=== PATIENT | male | born 1960 | race Hispanic/Latino ===

== ENCOUNTER 2018-04-24 02:00 | Emergency (ER) | payer OTHER ==
[2018-04-24] MEDS ORDERED: AUGMENTIN 875 MG PO STA (04:08)
[2018-04-24] MEDS ORDERED: XYLOCAINE 2% INFILTRATI STA (04:08)
[2018-04-24] MEDS ORDERED: NORCO 5/325 PO STA (04:08)
--- NOTE | 2018-04-24 05:03 | Emergency Department Report ---
Abscess Boil HPI - HPI Chief Complaint: Extremity Injury, Upper Stated Complaint: RING FINGER SWOLLEN LEFT HAND Time Seen by Provider: 04/24/18 04:07 Duration: 3 Days Location: Upper Extremity (left 3rd digit palmar aspect abscess noted) Severity: Mild History: Yes Pain, Yes Previous History, No Fever, No Purulent Drainage, No Numbness, No Foreign Body, No Insect Bite Home Medications: Previous Rx's Medication Instructions Recorded Last Taken Type Chlorhexidine Gluconate [Hibiclens] 10 ml TP BID #240 liquid 04/24/18 Unknown Rx Sulfamethoxazole/Trimethoprim 2 each PO BID #40 tablet 04/24/18 Unknown Rx [Bactrim DS TAB] Allergies/Adverse Reactions: Allergies Allergy/AdvReac Type Severity Reaction Status Date / Time No Known Allergies Allergy Verified 04/24/18 04:23 ED Review of Systems ROS: Stated complaint: RING FINGER SWOLLEN LEFT HAND Other details as noted in HPI Constitutional: denies: chills, fever Eyes: denies: eye pain, eye discharge, vision change ENT: denies: ear pain, throat pain Respiratory: denies: cough, shortness of breath, wheezing Cardiovascular: denies: chest pain, palpitations Endocrine: no symptoms reported Gastrointestinal: denies: abdominal pain, nausea, diarrhea Genitourinary: denies: urgency, dysuria Musculoskeletal: denies: back pain, joint swelling, arthralgia Skin: denies: rash, lesions Neurological: denies: headache, weakness, paresthesias Psychiatric: denies: anxiety, depression Hematological/Lymphatic: denies: easy bleeding, easy bruising ED Past Medical Hx - Past Medical History Previous Medical History?: Yes Additional medical history: Chronic Back Pain, Paget's Disease - Surgical History Past Surgical History?: Yes Additional Surgical History: Back, Lymph node removal Left Arm - Social History Smoking Status: Current Every Day Smoker Substance Use Type: None - Medications Home Medications: Home Medications Medication Instructions Recorded Confirmed Last Taken Type Chlorhexidine Gluconate [Hibiclens] 10 ml TP BID #240 liquid 04/24/18 Unknown Rx Sulfamethoxazole/Trimethoprim 2 each PO BID #40 tablet 04/24/18 Unknown Rx [Bactrim DS TAB] ED Abscess Boil Physical Exam - Exam General: Vital signs noted. No distress. Alert and acting appropriately. Front/Back of Body, Lg (Color): 1 - abscess finger Size: 2 cm Exam: Yes Tenderness, Yes Fluctuance, Yes Normal Neurologic Exam, Yes Normal Circulation, No Surrounding Cellulites/Erythema, No Lymphangitis, No Crepitation, No Heart Murmur I & D Note - I & D Note I & D Note: Left fourth index finger prepped and draped in standard sterile fashion anesthesia using 2% lidocaine with no epinephrine. #11 scalpel blade was used to make a T incision over the abscess site was copious pus was evacuated. Wound was irrigated and then dressed with a and time microbial nonstick dressing. No complications and estimated blood loss less than 2 mL ED Course Vital Signs 04/24/18 04/24/18 02:16 02:30 Temperature 98.0 F 98 F Pulse Rate 69 69 Respiratory 18 18 Rate Blood Pressure 115/66 Blood Pressure 115/66 [Left] O2 Sat by Pulse 95 95 Oximetry Critical care attestation.: If time is entered above; I have spent that time in minutes in the direct care of this critically ill patient, excluding procedure time. ED Disposition Clinical Impression: Abscess of finger of left hand Disposition: - TO HOME OR SELFCARE Is pt being admited?: No Does the pt Need Aspirin: No Condition: Stable Instructions: Abscess (ED) Referrals: TOREY OSUNA MD [Primary Care Provider] - 3-5 Days
[2018-04-24 06:05] VITALS: BP 123/87
== END 2018-04-24 06:05 | disposition home or self-care (01) ==
LOC: ED 02:00
DX: L02.512 Cutaneous abscess of left hand (principal); G89.29 Other chronic pain; F17.200 Nicotine dependence, unspecified, uncomplicated

== ENCOUNTER 2019-11-15 00:51 | Emergency (ER) | payer SELFPAY ==
[2019-11-15 01:20] VITALS: BP 166/99
[2019-11-15] MEDS ORDERED: IBUPROFEN 600 MG TAB PO ONE (04:09)
[2019-11-15] MEDS ORDERED: dexAMETHasone 20 MG/5 ML VIAL IM ONE (04:09)
[2019-11-15] MEDS ORDERED: ONDANSETRON 4 MG ODT TAB PO ONE (04:09)
[2019-11-15] MEDS ORDERED: HYDROcodone/ACETAMINOPHEN 5-325 MG TAB PO ONE (04:09)
--- NOTE | 2019-11-15 04:57 | XRay Report ---
LEFT SHOULDER 2 VIEWS INDICATION / CLINICAL INFORMATION: left shoulder pain - heavy lifting. COMPARISON: None available. FINDINGS: Surgical clips in the left axilla. No fracture, dislocation or other acute skeletal abnormality. Signer Name: Evelio Rodriguez MD Signed: 11/15/2019 4:53 AM Workstation Name: [id number]
--- NOTE | 2019-11-15 05:48 | Emergency Department Report ---
ED Upper Extremity Inj HPI - General Chief Complaint: Shoulder Injury Stated Complaint: LEFT SHOULDER PAIN Source: patient Mode of arrival: Ambulatory Limitations: No Limitations - History of Present Illness Initial Comments: Patient is a 59-year-old white male with a history of chronic hepatitis C who presents to the ED with complaint of acute onset persistent severe left shoulder pain after heavy lifting 3 days ago at home. Patient states that the pain has been persistent and severe and especially in the last 12 hours he has been unable to perform any active range of motion of the left shoulder because of severe pain. Patient states that he has been taking [id number] medications with no relief. Patient denies fall, traumatic injury, dizziness, syncope, chest pain, shortness of breath, neck pain, back pain, numbness and tingling or weakness of left arm or jaw pain and back pain. MD Complaint: Injury to:: left, shoulder -: Sudden, days(s) (3) Other Extremity Injury: Shoulder: Left (pain) Other Injuries: none Handedness: left Place: home Severity scale (0 -10): 7 Improves With: none Worsens With: movement of extremity Context: injury, other (heavy lifting) Associated Symptoms: denies other symptoms. denies: weakness, numbness, neck pain, suspects foreign body, nausea/vomiting - Related Data Previous Rx's Medication Instructions Recorded Last Taken Type Chlorhexidine Gluconate [Hibiclens] 10 ml TP BID #240 liquid 04/24/18 Unknown Rx Sulfamethoxazole/Trimethoprim 2 each PO BID #40 tablet 04/24/18 Unknown Rx [Bactrim DS TAB] Clindamycin [Clindamycin CAP] 300 mg PO Q8H #21 cap 06/23/18 Unknown Rx HYDROcodone/APAP 5-325 [[place] 1 each PO Q6HR PRN #14 tablet 06/23/18 Unknown Rx 5/325] Sulfamethoxazole/Trimethoprim 1 each PO BID #14 tablet 06/23/18 Unknown Rx [Bactrim DS TAB] Ibuprofen [Motrin 600 MG tab] 600 mg PO Q8H PRN #20 tablet 10/30/19 Unknown Rx Naproxen 500 mg PO Q12H PRN #30 tablet 11/15/19 Unknown Rx predniSONE [Deltasone] 40 mg PO QDAY #10 tab 11/15/19 Unknown Rx tiZANidine [Zanaflex 4mg TAB] 4 mg PO Q12H PRN #12 tablet 11/15/19 Unknown Rx traMADoL [Ultram] 50 mg PO Q6HR PRN #10 tablet 11/15/19 Unknown Rx Allergies Allergy/AdvReac Type Severity Reaction Status Date / Time No Known Allergies Allergy Verified 04/24/18 04:23 ED Review of Systems ROS: Stated complaint: LEFT SHOULDER PAIN Other details as noted in HPI Constitutional: denies: chills, fever Eyes: denies: eye pain, eye discharge, vision change ENT: denies: ear pain, throat pain Respiratory: denies: cough, shortness of breath, wheezing Cardiovascular: denies: chest pain, palpitations Endocrine: no symptoms reported Gastrointestinal: denies: abdominal pain, nausea, diarrhea Genitourinary: denies: urgency, dysuria Musculoskeletal: arthralgia (Left shoulder pain), myalgia. denies: back pain, joint swelling Skin: denies: rash, lesions Neurological: denies: headache, weakness, paresthesias Psychiatric: denies: anxiety, depression Hematological/Lymphatic: denies: easy bleeding, easy bruising ED Past Medical Hx - Past Medical History Hx Liver Disease: Yes (Hep C) Additional medical history: Paget's Disease - Surgical History Additional Surgical History: Back, Lymph node removal Left Arm - Social History Smoking Status: Current Every Day Smoker Substance Use Type: Alcohol - Medications Home Medications: Home Medications Medication Instructions Recorded Confirmed Last Taken Type Chlorhexidine Gluconate [Hibiclens] 10 ml TP BID #240 liquid 04/24/18 Unknown Rx Sulfamethoxazole/Trimethoprim 2 each PO BID #40 tablet 04/24/18 Unknown Rx [Bactrim DS TAB] Clindamycin [Clindamycin CAP] 300 mg PO Q8H #21 cap 06/23/18 Unknown Rx HYDROcodone/APAP 5-325 [[place] 1 each PO Q6HR PRN #14 tablet 06/23/18 Unknown Rx 5/325] Sulfamethoxazole/Trimethoprim 1 each PO BID #14 tablet 06/23/18 Unknown Rx [Bactrim DS TAB] Ibuprofen [Motrin 600 MG tab] 600 mg PO Q8H PRN #20 tablet 10/30/19 Unknown Rx Naproxen 500 mg PO Q12H PRN #30 tablet 11/15/19 Unknown Rx predniSONE [Deltasone] 40 mg PO QDAY #10 tab 11/15/19 Unknown Rx tiZANidine [Zanaflex 4mg TAB] 4 mg PO Q12H PRN #12 tablet 11/15/19 Unknown Rx traMADoL [Ultram] 50 mg PO Q6HR PRN #10 tablet 11/15/19 Unknown Rx ED Physical Exam - General Limitations: No Limitations General appearance: alert, in no apparent distress - Head Head exam: Present: atraumatic, normocephalic, normal inspection - Eye Eye exam: Present: normal appearance, PERRL, EOMI Pupils: Present: normal accommodation - ENT ENT exam: Present: normal exam, normal orophraynx, mucous membranes moist, TM's normal bilaterally, normal external ear exam - Neck Neck exam: Present: normal inspection, full ROM. Absent: tenderness - Respiratory Respiratory exam: Present: normal lung sounds bilaterally. Absent: respiratory distress, wheezes, rhonchi, chest wall tenderness, accessory muscle use, decreased breath sounds - Cardiovascular Cardiovascular Exam: Present: regular rate, normal rhythm, normal heart sounds. Absent: systolic murmur, diastolic murmur, rubs, gallop - GI/Abdominal GI/Abdominal exam: Present: soft, normal bowel sounds. Absent: distended, tenderness, rebound, hyperactive bowel sounds - Extremities Exam Extremities exam: Present: normal inspection, full ROM, tenderness (Palpable severe left shoulder tenderness with limited range of motion due to pain), normal capillary refill. Absent: joint swelling - Back Exam Back exam: Present: normal inspection, full ROM. Absent: tenderness, CVA tenderness (R), muscle spasm, paraspinal tenderness, vertebral tenderness - Neurological Exam Neurological exam: Present: alert, oriented X3, CN II-XII intact, normal gait, reflexes normal - Psychiatric Psychiatric exam: Present: normal affect, normal mood - Skin Skin exam: Present: warm, dry, intact, normal color. Absent: rash ED Course Vital Signs 11/15/19 00:56 Temperature 98.3 F Pulse Rate 69 Respiratory 18 Rate Blood Pressure 166/99 O2 Sat by Pulse 96 Oximetry ED Medical Decision Making - Radiology Data Radiology results: report reviewed, image reviewed Findings [facility] [address] [place] [address] XRay Report Signed Patient: PUJA WOODWARD MR#: [id number] : 1960 Acct:[id number] Age/Sex: 59 / M ADM Date: 11/15/19 Loc: ED Attending Dr: Ordering Physician: SARWAT YANG Date of Service: 11/15/19 Procedure(s): XR shoulder 2+V LT Accession Number(s): [id number] cc: SARWAT YANG Fluoro Time In Minutes: LEFT SHOULDER 2 VIEWS INDICATION / CLINICAL INFORMATION: left shoulder pain - heavy lifting. COMPARISON: None available. FINDINGS: Surgical clips in the left axilla. No fracture, dislocation or other acute skeletal abnormality. Signer Name: Evelio Rodriguez MD Signed: 11/15/2019 4:53 AM Workstation Name: [id number] Transcribed By: TM Dictated By: Evelio Rodriguez MD Electronically Authenticated By: Evelio Rodriguez MD Signed Date/Time: 11/15/19452 DD/ 1 TD/TT: - Medical Decision Making This is a 59-year-old white male with a history of chronic hepatitis C who presents to the ED with complaint of acute onset persistent severe left shoulder pain after heavy lifting 3 days ago at home. Patient states that the pain has been persistent and severe and especially in the last 12 hours he has been unable to perform any active range of motion of the left shoulder because of severe pain. Patient states that he has been taking [id number] medications with no relief. In the ED, patient is alert and oriented x3 and is not in distress. Patient was treated for pain in the ED and left shoulder x-ray shows no acute fractures or subluxations. On reevaluation, patient's pain is well controlled medications. Patient was discharged home on pain medications and muscle relaxants and was advised to follow-up with his primary care physician in 5 to 7 days for reevaluation or return to the ED immediately if symptoms get worse. - Differential Diagnosis Shoulder fracture; shoulder sprain; muscle strain; bursitis; tendinitis Critical care attestation.: If time is entered above; I have spent that time in minutes in the direct care of this critically ill patient, excluding procedure time. ED Disposition Clinical Impression: Left shoulder tendonitis Sprain of left shoulder Qualifiers: Encounter type: initial encounter Shoulder sprain type: unspecified sprain Qualified Code(s): S43.402A - Unspecified sprain of left shoulder joint, initial encounter Muscle strain of left shoulder Qualifiers: Encounter type: initial encounter Qualified Code(s): S46.912A - Strain of unspecified muscle, fascia and tendon at shoulder and upper arm level, left arm, initial encounter Disposition: TO HOME OR SELFCARE Is pt being admited?: No Does the pt Need Aspirin: No Condition: Stable Instructions: Muscle Strain (ED), Shoulder Sprain (ED), Tendinitis (ED) Additional Instructions: Left shoulder x-ray shows no acute fractures or subluxations. Therefore take medication with food, drink plenty of fluids and follow-up with your primary care physician in 5 to 7 days for reevaluation. Return to the ED immediately if symptoms get worse. Prescriptions: predniSONE [Deltasone] 40 mg PO QDAY #10 tab Naproxen 500 mg PO Q12H PRN #30 tablet PRN Reason: Pain , Severe (7-10) traMADoL [Ultram] 50 mg PO Q6HR PRN #10 tablet PRN Reason: Pain tiZANidine [Zanaflex 4mg TAB] 4 mg PO Q12H PRN #12 tablet PRN Reason: Muscle Spasm Referrals: [facility] [Provider Group] - 3-5 Days Time of Disposition: 05:46 Print Language: THAI
== END 2019-11-15 07:05 | disposition home or self-care (01) ==
LOC: ED 00:51
DX: S46.912A Strain of unspecified muscle, fascia and tendon at shoulder and upper arm level, left arm, initial encounter (principal); S43.402A Unspecified sprain of left shoulder joint, initial encounter; M77.8 Other enthesopathies, not elsewhere classified; F17.200 Nicotine dependence, unspecified, uncomplicated; Z79.899 Other long term (current) drug therapy; X50.0XXA Overexertion from strenuous movement or load, initial encounter; Y93.89 Activity, other specified; Y92.89 Other specified places as the place of occurrence of the external cause; Y99.8 Other external cause status
CPT/HCPCS: 73030; 96372; 99283; J1100; Q0162